=== PATIENT | male | born 1995 | race American Indian/Alaskan Native ===

== ENCOUNTER 2016-06-28 20:19 | Emergency (ER) | payer OTHER ==
[2016-06-29 00:05] LABS: Bacteria,Urine 1+ /HPF (Negative); Bilirubin,Urine NEG (Negative); Blood,Urine NEG (Negative); Ketones,Urine NEG (Negative); Leukocyte Esterase,Urine NEG (Negative); Nitrite,Urine NEG (Negative); Protein,Urine <15 mg/dL mg/dL (Negative); Urobilinogen,Urine < 2.0 mg/dL (<2.0)
[2016-06-29] MEDS ORDERED: XYLOCAINE 1% MPF 5 mL INFILTRATI ONE (01:32)
[2016-06-29] MEDS ORDERED: ZITHROMAX PO ONE (01:32)
[2016-06-29] MEDS ORDERED: ROCEPHIN IM ONE (01:32)
--- NOTE | 2016-06-29 01:47 | Emergency Department Report ---
ED Male HPI - General Chief complaint: Urogenital-Male Stated complaint: PAINFUL URINATION Time Seen by Provider: 06/29/16 01:20 Source: patient Mode of arrival: Ambulatory Limitations: No Limitations - History of Present Illness Initial comments: 21-year-old -[place]ian male with past medical history of legally blind. Home from the . He reports this been having clear discharge from his penis and is painful for him to urinate. Patient reports that he saw his primary care doctor week ago was given Flagyl as a medication for treatment. Patient state is not any better. He seemed does admit to having unprotected sex prior to visiting his primary care provider. He is currently on no medications has no known drug allergies. MD Complaint: penile discharge, dysuria - Related Data Previous Rx's Medication Instructions Recorded Last Taken Type HYDROcodone/APAP 5-325 [[place] 1 each PO Q6HR PRN #10 tablet 08/11/13 Unknown Rx 5/325 mg] Ibuprofen [Motrin 800 MG tab] 800 mg PO Q8H #30 tablet 08/11/13 Unknown Rx Azithromycin [Zithromax] 250 mg PO DAILY #6 tablet 05/15/16 Unknown Rx Ibuprofen [Motrin] 800 mg PO Q8HR PRN #30 tablet 05/15/16 Unknown Rx predniSONE [Deltasone] 10 mg PO QDAY #4 tab 05/15/16 Unknown Rx Allergies Allergy/AdvReac Type Severity Reaction Status Date / Time No Known Allergies Allergy Unverified 08/11/13 08:25 ED Review of Systems ROS: Stated complaint: PAINFUL URINATION Other details as noted in HPI ED Past Medical Hx - Past Medical History Previous Medical History?: No - Social History Smoking Status: Unknown if ever smoked - Medications Home Medications: Home Medications Medication Instructions Recorded Confirmed Last Taken Type HYDROcodone/APAP 5-325 [[place] 1 each PO Q6HR PRN #10 tablet 08/11/13 Unknown Rx 5/325 mg] Ibuprofen [Motrin 800 MG tab] 800 mg PO Q8H #30 tablet 08/11/13 Unknown Rx Azithromycin [Zithromax] 250 mg PO DAILY #6 tablet 05/15/16 Unknown Rx Ibuprofen [Motrin] 800 mg PO Q8HR PRN #30 tablet 05/15/16 Unknown Rx predniSONE [Deltasone] 10 mg PO QDAY #4 tab 05/15/16 Unknown Rx ED Physical Exam - General Limitations: No Limitations General appearance: alert, in no apparent distress - Head Head exam: Present: atraumatic, normocephalic - Eye Eye exam: Present: normal appearance - GI/Abdominal GI/Abdominal exam: Present: soft. Absent: distended - exam: Present: normal inspection, urethral discharge, other (groin lymphadenopathy). Absent: testicular tenderness, scrotal swelling ED Course Vital Signs 06/28/16 21:41 Temperature 98.1 F Pulse Rate 78 Respiratory 18 Rate Blood Pressure 112/37 O2 Sat by Pulse 99 Oximetry ED Medical Decision Making - Medical Decision Making Patient's been evaluated by this provider fast track. Discussed patient that we will treat him for gonorrhea and chlamydia. Total patient will give him a shot of Rocephin antibiotic as well as a Zithromax 1 g. Patient verbalized understanding. Critical care attestation.: If time is entered above; I have spent that time in minutes in the direct care of this critically ill patient, excluding procedure time. ED Disposition Clinical Impression: Possible exposure to STD Disposition: DISCHARGED TO HOME OR SELFCARE Is pt being admited?: No Does the pt Need Aspirin: No Instructions: Safe Sex (ED), Sexually Transmitted Diseases (ED) Additional Instructions: Encourage to follow-up with her primary care provider if this persist. Referrals: SANDOR GUAMAN JR, MD [Primary Care Provider] - 3-5 Days
[2016-06-29 01:53] VITALS: BP 108/69
== END 2016-06-29 02:47 | disposition home or self-care (01) ==
LOC: ED 20:19
DX: R36.9 Urethral discharge, unspecified (principal); R30.0 Dysuria
CPT/HCPCS: 81001; 96372; 99282; J0696

== ENCOUNTER 2016-07-06 09:35 | Emergency (ER) | payer OTHER ==
[2016-07-06 09:45] VITALS: BP 119/67
--- NOTE | 2016-07-06 12:40 | Emergency Department Report ---
HPI - General Chief Complaint: Urogenital-Male Time Seen by Provider: 07/06/16 12:13 - HPI HPI: 21-year-old -Cro[place] male comes in today for a return visit for possible STD exposure. Patient complains also of bilateral eye irritation and drainage. Patient reports is no relief with [id number] allergy meds. Patient was recently seen here on 06/28/2016 by this provider and was treated for gonorrhea Chlamydia and Trichomonas. Patient denies any testicular pain to testicular swelling. No recent exposure to any STDs. Since he has been treated on 06/28/2016. ED Past Medical Hx - Past Medical History Previous Medical History?: Yes Additional medical history: STD exposure - Surgical History Past Surgical History?: No - Social History Smoking Status: Never Smoker Substance Use Type: None - Medications Home Medications: Home Medications Medication Instructions Recorded Confirmed Last Taken Type HYDROcodone/APAP 5-325 [[place] 1 each PO Q6HR PRN #10 tablet 08/11/13 Unknown Rx 5/325 mg] Ibuprofen [Motrin 800 MG tab] 800 mg PO Q8H #30 tablet 08/11/13 Unknown Rx Azithromycin [Zithromax] 250 mg PO DAILY #6 tablet 05/15/16 Unknown Rx Ibuprofen [Motrin] 800 mg PO Q8HR PRN #30 tablet 05/15/16 Unknown Rx predniSONE [Deltasone] 10 mg PO QDAY #4 tab 05/15/16 Unknown Rx Levofloxacin [levofloxacin OPTH] 1 - 2 drop OP Q2HWA #1 bottle 07/06/16 Unknown Rx ED Review of Systems ROS: Stated complaint: POSS STD/PINK EYE Other details as noted in HPI Physical Exam - Physical Exam Vital Signs: Vital Signs 07/06/16 09:41 Temperature 98.7 F Pulse Rate 92 H Respiratory 18 Rate Blood Pressure 119/67 O2 Sat by Pulse 98 Oximetry Physical Exam: GENERAL: Alert and oriented x3, no apparent distress, Normal Gait, atraumatic. HEAD: Head is normocephalic and a-traumatic. EYES: Extra ocular muscles are intact. Pupils are equal, round, and reactive to light and accommodation. Bilateral conjunctival erythematous with mild edematous EARS: symetrical, atraumatic, non tender, ear canal clear and moderate cerumen, tympanic membrance non inflamed. gross auditory nml bilaterally. NOSE: Nose symetrical, Nontender,Nares appeared normal. MOUTH:Mouth is well hydrated and without lesions. Tonsils nonerythematous or swollen, Uvula midline, Tongue not elevated. Mucous membranes are moist. Posterior pharynx clear, no exudate or lesions. Patent airways. UROGENITAL: No scrotal mass, Scrotum non tender to palpation bilaterally, no hernia, no scars or penile discharge. EXTREMITIES/MUSCULOSKELETAL: No cyanosis, clubbing, rash, lesions or edema. Full ROM bilaterally. UE/LE Pulses 2+ bilaterally. LE and UE 5+ strength bilaterally NEUROLOGIC: No focal Deficit, Cranial nerves II through XII are grossly intact. No loss of sensation, No facial droop, Negative rhomberg. PSYCHIATRIC: Mood is congruent with affect, denies suicidal or homicidal ideations. SKIN: Warm and dry, No lesions, No ulceration or induration present ED Course Vital Signs 07/06/16 09:41 Temperature 98.7 F Pulse Rate 92 H Respiratory 18 Rate Blood Pressure 119/67 O2 Sat by Pulse 98 Oximetry ED Medical Decision Making - Medical Decision Making Assessment evaluated by this provider in fast track. Discussed with patient that he was recently treated for gonorrhea Chlamydia and Trichomonas. Discussed with patient that we will refer him to urology. Discussed with patient that we will treat his conjunctivitis with antibiotics. Discussed with patient that we were referred him to a primary care provider for further evaluation. Patient Verbalized Understanding Critical care attestation.: If time is entered above; I have spent that time in minutes in the direct care of this critically ill patient, excluding procedure time. ED Disposition Clinical Impression: Penile discharge Conjunctivitis Qualifiers: Conjunctivitis type: acute Acute conjunctivitis type: unspecified Laterality: bilateral Qualified Code(s): H10.33 - Unspecified acute conjunctivitis, bilateral Disposition: DISCHARGED TO HOME OR SELFCARE Is pt being admited?: No Does the pt Need Aspirin: No Condition: Stable Instructions: Conjunctivitis (ED) Additional Instructions: Take antibiotics as prescribed for URI. Follow up with the urologist and primary care. If symptoms persists or gets worse follow-up with emergency room Prescriptions: Levofloxacin [levofloxacin OPTH] 1 - 2 drop OP Q2HWA #1 bottle Referrals: SANDOR GUAMAN JR, MD [Primary Care Provider] - 3-5 Days MURALI TA MD [Referring] - 3-5 Days NELLY PECK MD [Referring] - 3-5 Days STELLA WALDEN MD [Referring] - 3-5 Days ISHAN VERGARA MD [Referring] - 3-5 Days IGNACIO HERNANDEZ MD [Referring] - 3-5 [facility] [[facility]] - 3-5 Days Forms: Work/School Release Form(ED)
== END 2016-07-06 13:00 | disposition home or self-care (01) ==
LOC: ED 09:35
DX: H10.33 Unspecified acute conjunctivitis, bilateral (principal); R36.9 Urethral discharge, unspecified
CPT/HCPCS: 99282

== ENCOUNTER 2016-08-30 15:19 | Emergency (ER) | payer OTHER ==
--- NOTE | 2016-08-30 18:30 | Emergency Department Report ---
<BRITANY HIRSCH - Last Filed: 08/30/16 19:10> ED ENT HPI - General Chief complaint: Sore Throat Stated complaint: Sore Throat Source: patient Mode of arrival: Ambulatory Limitations: No Limitations - History of Present Illness Initial comments: 21 year old male presents to ED with sore throat and productive cough x3-4 days. patient is stable, neurologically intact, in no acute distress and afebrile. MD complaint: sore throat, ear pain (right), difficulty swallowing Location: R ear, throat Severity: mild Consistency: constant Improves with: none Worsens with: swallowing Associated Symptoms: cough, pain with swallowing, sore throat. denies: fever, tinnitus, hearing loss, discharge from ear - Related Data Previous Rx's Medication Instructions Recorded Last Taken Type HYDROcodone/APAP 5-325 [[place] 1 each PO Q6HR PRN #10 tablet 08/11/13 Unknown Rx 5/325 mg] Ibuprofen [Motrin 800 MG tab] 800 mg PO Q8H #30 tablet 08/11/13 Unknown Rx Azithromycin [Zithromax] 250 mg PO DAILY #6 tablet 05/15/16 Unknown Rx Ibuprofen [Motrin] 800 mg PO Q8HR PRN #30 tablet 05/15/16 Unknown Rx predniSONE [Deltasone] 10 mg PO QDAY #4 tab 05/15/16 Unknown Rx Levofloxacin [levofloxacin OPTH] 1 - 2 drop OP Q2HWA #1 bottle 07/06/16 Unknown Rx Nystas/Diphen/Xyl Visc/Mylanta 30 ml MM Q4H PRN 5 Days 08/30/16 Unknown Rx [Magic Mouthwash] predniSONE [Deltasone] 40 mg PO QDAY 5 Days 08/30/16 Unknown Rx Allergies Allergy/AdvReac Type Severity Reaction Status Date / Time No Known Allergies Allergy Unverified 08/11/13 08:25 ED Dental HPI - General Chief complaint: Sore Throat Stated complaint: Sore Throat Source: patient Mode of arrival: Ambulatory Limitations: No Limitations - Related Data Previous Rx's Medication Instructions Recorded Last Taken Type HYDROcodone/APAP 5-325 [[place] 1 each PO Q6HR PRN #10 tablet 08/11/13 Unknown Rx 5/325 mg] Ibuprofen [Motrin 800 MG tab] 800 mg PO Q8H #30 tablet 05/17/14 Unknown Rx Azithromycin [Zithromax] 250 mg PO DAILY #6 tablet 05/15/16 Unknown Rx Ibuprofen [Motrin] 800 mg PO Q8HR PRN #30 tablet 05/15/16 Unknown Rx predniSONE [Deltasone] 10 mg PO QDAY #4 tab 05/15/16 Unknown Rx Levofloxacin [levofloxacin OPTH] 1 - 2 drop OP Q2HWA #1 bottle 07/06/16 Unknown Rx Nystas/Diphen/Xyl Visc/Mylanta 30 ml MM Q4H PRN 5 Days 08/30/16 Unknown Rx [Magic Mouthwash] predniSONE [Deltasone] 40 mg PO QDAY 5 Days 08/30/16 Unknown Rx Allergies Allergy/AdvReac Type Severity Reaction Status Date / Time No Known Allergies Allergy Unverified 08/11/13 08:25 ED Review of Systems ROS: Stated complaint: Sore Throat Other details as noted in HPI Constitutional: denies: chills, fever Eyes: denies: eye pain, eye discharge, vision change ENT: ear pain, throat pain Respiratory: denies: cough, shortness of breath, wheezing Cardiovascular: denies: chest pain, palpitations Endocrine: no symptoms reported Gastrointestinal: denies: abdominal pain, nausea, diarrhea Genitourinary: denies: urgency, dysuria Musculoskeletal: denies: back pain, joint swelling, arthralgia Skin: denies: rash, lesions Neurological: denies: headache, weakness, paresthesias Psychiatric: denies: anxiety, depression Hematological/Lymphatic: denies: easy bleeding, easy bruising ED Past Medical Hx - Past Medical History Previous Medical History?: Yes Additional medical history: STD exposure - Surgical History Past Surgical History?: No - Social History Smoking Status: Never Smoker Substance Use Type: Non Opiate Pain, Other - Medications Home Medications: Home Medications Medication Instructions Recorded Confirmed Last Taken Type HYDROcodone/APAP 5-325 [[place] 1 each PO Q6HR PRN #10 tablet 08/11/13 Unknown Rx 5/325 mg] Ibuprofen [Motrin 800 MG tab] 800 mg PO Q8H #30 tablet 08/11/13 Unknown Rx Azithromycin [Zithromax] 250 mg PO DAILY #6 tablet 05/15/16 Unknown Rx Ibuprofen [Motrin] 800 mg PO Q8HR PRN #30 tablet 05/15/16 Unknown Rx predniSONE [Deltasone] 10 mg PO QDAY #4 tab 05/15/16 Unknown Rx Levofloxacin [levofloxacin OPTH] 1 - 2 drop OP Q2HWA #1 bottle 07/06/16 Unknown Rx Nystas/Diphen/Xyl Visc/Mylanta 30 ml MM Q4H PRN 5 Days 08/30/16 Unknown Rx [Magic Mouthwash] predniSONE [Deltasone] 40 mg PO QDAY 5 Days 08/30/16 Unknown Rx ED Physical Exam - General Limitations: No Limitations General appearance: alert, in no apparent distress - Head Head exam: Present: atraumatic, normocephalic - Eye Eye exam: Present: normal appearance - ENT ENT exam: Present: normal exam, mucous membranes moist, TM's normal bilaterally - Neck Neck exam: Present: normal inspection, full ROM. Absent: tenderness, lymphadenopathy - Respiratory Respiratory exam: Present: normal lung sounds bilaterally. Absent: respiratory distress - Cardiovascular Cardiovascular Exam: Present: regular rate, normal rhythm. Absent: systolic murmur, diastolic murmur, rubs, gallop - GI/Abdominal GI/Abdominal exam: Present: soft, normal bowel sounds. Absent: tenderness - Rectal Rectal exam: Present: deferred - Extremities Exam Extremities exam: Present: normal inspection, full ROM - Back Exam Back exam: Present: normal inspection, full ROM - Neurological Exam Neurological exam: Present: alert, oriented X3, normal gait - Psychiatric Psychiatric exam: Present: normal affect, normal mood - Skin Skin exam: Present: warm, dry, intact, normal color. Absent: rash ED Course Vital Signs 08/30/16 15:33 Temperature 98.7 F Pulse Rate 88 Respiratory 20 Rate Blood Pressure 113/70 O2 Sat by Pulse 97 Oximetry ED Medical Decision Making - Medical Decision Making 21 year old male presents to ED with sore throat and coughing. patient has CXR and rapid strep pending per discharge. patient care transitioned to johntahon MCCLURE at 705pm Critical care attestation.: If time is entered above; I have spent that time in minutes in the direct care of this critically ill patient, excluding procedure time. ED Disposition Clinical Impression: Bronchitis, acute Qualifiers: Bronchitis organism: unspecified organism Qualified Code(s): J20.9 - Acute bronchitis, unspecified Disposition: DISCHARGED TO HOME OR SELFCARE Is pt being admited?: No Does the pt Need Aspirin: No Condition: Stable Instructions: Acute Bronchitis (ED) Additional Instructions: Take prednisone and cough syrup as prescribed. Follow-up with her primary care doctor in 3-5 days or if symptoms worsen report back to the emergency room as soon as possible. Prescriptions: Nystas/Diphen/Xyl Visc/Mylanta [Magic Mouthwash] 30 ml MM Q4H PRN 5 Days PRN Reason: Sore Throat predniSONE [Deltasone] 40 mg PO QDAY 5 Days Referrals: PRIMARY CAREMD [Primary Care Provider] - 3-5 Days [facility] [Outside] - 3-5 Days [facility] [Outside] - 3-5 Days YOANNA MANTILLA MD [Staff Physician] - 3-5 Days Forms: Work/School Release Form(ED) <JOHNATHON AGOSTO - Last Filed: 08/30/16 20:24> ED ENT HPI - History of Present Illness complaint: ear pain ED Medical Decision Making - Medical Decision Making Patient was transitioned from Cornelius, A PC-C due to pending x-ray results.. As per Cornelius, no antibiotics to d/c with. Only prednisone and magic mouth wash.
[2016-08-30] MEDS ORDERED: TORADOL IM ONE (18:45)
[2016-08-30] MEDS ORDERED: PHENERGAN/CODEINE 6.25-10 MG/5ML PO ONE (18:45)
--- NOTE | 2016-08-30 20:14 | XRay Report ---
FINAL REPORT EXAM: XR CHEST ROUTINE 2V HISTORY: cough and sore throat for 4 days TECHNIQUE: PA and lateral views of the chest PRIORS: None. FINDINGS: Lines, tubes, and devices: N/A Lungs and pleura: Trachea is normal in position. Lungs are clear of infiltrate, pleural effusion, vascular congestion, or pneumothorax. Cardiomediastinal silhouette: Cardiac and mediastinal silhouettes are unremarkable. Other: Bony structures are intact. IMPRESSION: No acute cardiopulmonary process seen.
[2016-08-30 21:01] VITALS: BP 101/58
== END 2016-08-30 21:01 | disposition home or self-care (01) ==
LOC: ED 15:19
DX: J20.9 Acute bronchitis, unspecified (principal)
CPT/HCPCS: 71020; 87116; 87430; 96372; J1885

== ENCOUNTER 2016-11-06 09:23 | Emergency (ER) | payer OTHER ==
--- NOTE | 2016-11-06 10:46 | XRay Report ---
Left knee 2 views: History: Pain left knee. Findings: No bony or articular abnormality. No fracture or dislocation. Suspicion of minimal fluid in the suprapatellar bursa. Impression: Suspicion of minimal fluid in suprapatellar bursa.
--- NOTE | 2016-11-06 10:47 | XRay Report ---
Right shoulder 3 views: History: Pain. Findings: No bony or articular abnormality. No fracture dislocation or soft tissue calcification. Impression: Essentially negative right shoulder.
--- NOTE | 2016-11-06 14:35 | Emergency Department Report ---
ED Neck Pain/Injury HPI - General Chief Complaint: Neck Pain/Injury Stated Complaint: RT SHOULDER/LEFT KNEE PAIN/DEPRESSED Time Seen by Provider: 11/06/16 14:20 Mode of arrival: Ambulatory Limitations: No Limitations - History of Present Illness Initial Comments: 21-year-old male presents with complaint of acute on chronic neck pain knee and shoulder pain. Patient states he suffers from cervical spondylolisthesis and was in the [employer], states that he did a lot of parachute jumps and that he has explains chronic pain in his knee and shoulders as a result. Denies any fevers chills patient is ambulatory without assistance. Denies any paresthesias no reports of paralysis no upper or lower extremity paresthesias. Patient is visibly and lids are without assistance. States he is following up with orthopedics for his chronic neck and shoulder and knee pain. states this particular episode got aggravated this week MD Complaint: other (chronic neck pain) Onset/Timin -: week(s) Place: home Radiation: right shoulder Severity: moderate Severity scale (0 -10): 5 Quality: aching Consistency: intermittent Improves With: none Associated Symptoms: none - Related Data Previous Rx's Medication Instructions Recorded Last Taken Type HYDROcodone/APAP 5-325 [[place] 1 each PO Q6HR PRN #10 tablet 08/11/13 Unknown Rx 5/325 mg] Ibuprofen [Motrin 800 MG tab] 800 mg PO Q8H #30 tablet 08/11/13 Unknown Rx Azithromycin [Zithromax] 250 mg PO DAILY #6 tablet 05/15/16 Unknown Rx Ibuprofen [Motrin] 800 mg PO Q8HR PRN #30 tablet 05/15/16 Unknown Rx predniSONE [Deltasone] 10 mg PO QDAY #4 tab 05/15/16 Unknown Rx Levofloxacin [levofloxacin OPTH] 1 - 2 drop OP Q2HWA #1 bottle 07/06/16 Unknown Rx Nystas/Diphen/Xyl Visc/Mylanta 30 ml MM Q4H PRN 5 Days 08/30/16 Unknown Rx [Magic Mouthwash] predniSONE [Deltasone] 40 mg PO QDAY 5 Days 08/30/16 Unknown Rx Acetaminophen/Codeine [Tylenol 1 tab PO Q6H PRN #14 tab 11/06/16 Unknown Rx /Codeine # 3 tab] Naproxen [Naprosyn TAB] 500 mg PO BID PRN #25 tablet 11/06/16 Unknown Rx Allergies Allergy/AdvReac Type Severity Reaction Status Date / Time No Known Allergies Allergy Unverified 08/11/13 08:25 ED Review of Systems ROS: Stated complaint: RT SHOULDER/LEFT KNEE PAIN/DEPRESSED Other details as noted in HPI Constitutional: denies: chills, fever Eyes: denies: eye pain, eye discharge, vision change ENT: denies: ear pain, throat pain Respiratory: denies: cough, shortness of breath, wheezing Cardiovascular: denies: chest pain, palpitations Endocrine: no symptoms reported Gastrointestinal: denies: abdominal pain, nausea, diarrhea Genitourinary: denies: urgency, dysuria Musculoskeletal: as per HPI, arthralgia. denies: back pain, joint swelling Skin: denies: rash, lesions Neurological: denies: headache, weakness, paresthesias Psychiatric: denies: anxiety, depression Hematological/Lymphatic: denies: easy bleeding, easy bruising ED Past Medical Hx - Past Medical History Previous Medical History?: No Additional medical history: STD exposure - Social History Smoking Status: Never Smoker - Medications Home Medications: Home Medications Medication Instructions Recorded Confirmed Last Taken Type HYDROcodone/APAP 5-325 [[place] 1 each PO Q6HR PRN #10 tablet 08/11/13 Unknown Rx 5/325 mg] Ibuprofen [Motrin 800 MG tab] 800 mg PO Q8H #30 tablet 08/11/13 Unknown Rx Azithromycin [Zithromax] 250 mg PO DAILY #6 tablet 05/15/16 Unknown Rx Ibuprofen [Motrin] 800 mg PO Q8HR PRN #30 tablet 05/15/16 Unknown Rx predniSONE [Deltasone] 10 mg PO QDAY #4 tab 05/15/16 Unknown Rx Levofloxacin [levofloxacin OPTH] 1 - 2 drop OP Q2HWA #1 bottle 07/06/16 Unknown Rx Nystas/Diphen/Xyl Visc/Mylanta 30 ml MM Q4H PRN 5 Days 08/30/16 Unknown Rx [Magic Mouthwash] predniSONE [Deltasone] 40 mg PO QDAY 5 Days 08/30/16 Unknown Rx Acetaminophen/Codeine [Tylenol 1 tab PO Q6H PRN #14 tab 11/06/16 Unknown Rx /Codeine # 3 tab] Naproxen [Naprosyn TAB] 500 mg PO BID PRN #25 tablet 11/06/16 Unknown Rx ED Physical Exam - General Limitations: No Limitations General appearance: alert, in no apparent distress - Head Head exam: Present: atraumatic, normocephalic - Eye Eye exam: Present: normal appearance, PERRL, EOMI - ENT ENT exam: Present: mucous membranes moist - Neck Neck exam: Present: normal inspection, full ROM (neck flexion and extension and lateral rotation and lateral flexion fully intact) - Respiratory Respiratory exam: Present: normal lung sounds bilaterally. Absent: respiratory distress - Cardiovascular Cardiovascular Exam: Present: regular rate, normal rhythm. Absent: systolic murmur, diastolic murmur, rubs, gallop - GI/Abdominal GI/Abdominal exam: Present: soft, normal bowel sounds - Rectal Rectal exam: Present: deferred - Extremities Exam Extremities exam: Present: normal inspection - Back Exam Back exam: Present: normal inspection - Neurological Exam Neurological exam: Present: alert, oriented X3, CN II-XII intact, normal gait - Expanded Neurological Exam Expanded Patient oriented to: Present: person, place, time Cranial nerves: EOM's Intact: Normal Cerebellar function: Finger to Nose: Normal, Heel to Puri: Normal, Romberg: Normal Sensory exam: Upper Extremity Light Touch: Normal, Lower Extremity Light Touch: Normal Motor strength exam: RUE: 5, LUE: 5, RLE: 5, LLE: 5 DTR: bicep (R): 3+, bicep (L): 3+, tricep (R): 3+, tricep (L): 3+, knee (R): 3+ , knee (L): 3+ Best Eye Response (Rosa): (4) open spontaneously Best Motor Response (Rosalia): (6) obeys commands Best Verbal Response (Rosa): (5) oriented Rosa Total: 15 - Psychiatric Psychiatric exam: Present: normal affect, normal mood - Skin Skin exam: Present: warm, dry, intact, normal color. Absent: rash ED Course Vital Signs 11/06/16 11/06/16 10:01 14:53 Temperature 98 F Pulse Rate 85 80 Respiratory 20 18 Rate Blood Pressure 112/66 Blood Pressure 112/66 144/86 [Left] O2 Sat by Pulse 100 100 Oximetry ED Medical Decision Making - Medical Decision Making A/P: Acute on chronic neck shoulder and knee pain secondary to cervical spondylolisthesis and repetitive exercise 1-naproxen and short course Tylenol 3 when necessary 2-referral to orthopedics and spine surgery 3-x-rays unremarkable 4-patient has 5 out of 5 strength both upper extremities is ambulatory and denies any paresthesias no recent trauma. Forearm and tricep reflexes intact bilaterally. No clinical signs of cord compression. Critical care attestation.: If time is entered above; I have spent that time in minutes in the direct care of this critically ill patient, excluding procedure time. ED Disposition Clinical Impression: Neck pain, chronic Knee pain, chronic Qualifiers: Laterality: bilateral Qualified Code(s): M25.561 - Pain in right knee Disposition: TO HOME OR SELFCARE Is pt being admited?: No Does the pt Need Aspirin: No Condition: Stable Instructions: Cervical Radiculopathy (ED) Prescriptions: Acetaminophen/Codeine [Tylenol /Codeine # 3 tab] 1 tab PO Q6H PRN #14 tab PRN Reason: Pain Naproxen [Naprosyn TAB] 500 mg PO BID PRN #25 tablet PRN Reason: Pain Referrals: CONCHIS VALADEZ MD [Staff Physician] - 3-5 Days PRASHANTH MAYS MD [Staff Physician] - 3-5 Days Forms: Work/School Release Form(ED) Time of Disposition: 14:36
[2016-11-06] MEDS ORDERED: NORCO 5/325 PO ONE (14:38)
[2016-11-06] MEDS ORDERED: ZOFRAN ODT PO ONE (14:39)
[2016-11-06 14:54] VITALS: BP 144/86
== END 2016-11-06 14:53 | disposition home or self-care (01) ==
LOC: ED 09:23
DX: G89.29 Other chronic pain (principal); M54.2 Cervicalgia; M25.562 Pain in left knee
CPT/HCPCS: 99283

== ENCOUNTER 2016-12-12 08:43 | Emergency (ER) | payer OTHER ==
[2016-12-12 08:49] VITALS: BP 113/71
[2016-12-12] MEDS ORDERED: DECADRON IM STA (10:12)
--- NOTE | 2016-12-12 10:12 | Emergency Department Report ---
ED Rash HPI - HPI Chief Complaint: Skin Rash Stated Complaint: RASH Time Seen by Provider: 12/12/16 10:05 Duration: 2 weeks Location: Other (Face) Suspected Cause: Unknown Rash Symptoms: Yes Itching (rash to face), No Facial Swelling, No Tongue/Oral Swelling, No Breathing Difficulties, No Choking Sensation, No Wheezing/Dyspnea, No Peeling, No Blistering, No Fever, No Lightheaded, No Malaise, No Myalgias Other History: Patient here reports that he has rash to his face for the last 2 weeks. He says is itchy but denies any pain. Denies any respiratory difficulties. Patient does not know what he is allergic to. He said he did not use anything [id number]. Denies any nausea or vomiting. Denies any cough or wheezing. Denies any swelling to tongue or difficulty swallowing. Denies any fever or chills. ED Review of Systems ROS: Stated complaint: RASH Other details as noted in HPI Comment: All other systems reviewed and negative Constitutional: no symptoms reported Eyes: denies: eye pain, eye discharge ENT: denies: throat pain, congestion Respiratory: no symptoms reported Cardiovascular: denies: chest pain, palpitations, edema, syncope Gastrointestinal: denies: nausea, vomiting Musculoskeletal: denies: arthralgia Skin: rash, pruritus Neurological: denies: headache, weakness, numbness, paresthesias, confusion, abnormal gait, vertigo ED Past Medical Hx - Past Medical History Previous Medical History?: No Additional medical history: STD exposure - Surgical History Past Surgical History?: No - Family History Family history: no significant - Social History Smoking Status: Never Smoker Substance Use Type: None - Medications Home Medications: Home Medications Medication Instructions Recorded Confirmed Last Taken Type Cetirizine HCl [ZyrTEC] 10 mg PO QDAY #7 capsule 12/12/16 Unknown Rx methylPREDNISolone [Medrol] 4 mg PO QAM #1 tab.ds.pk 12/12/16 Unknown Rx Rash Exam - Exam General: Vital signs noted. No distress. Alert and acting appropriately. This is a 41-year-old male well-nourished well-developed in no acute distress. HEENT: No Periorbital Edema, No Conjuctival Injection, No Chemosis, No Perioral Edema, No Tongue Edema, No Uvular Edema, No Compromised Airway, No Drooling Lungs: Yes Good Air Exchange, No Wheezes, No Ronchi, No Stridor, No Cough, No Labored Respirations, No Retractions, No Use of Accessory Muscles, No Other Abnormal Lung Sounds Heart: Yes Regular, No Murmur Skin: Yes Urticarial Rash (scattered sparsely to face on both sides), Yes Erythema (facial rash), No Maculopapular Rash, No Morbilliform rash, No Bulla(e) , No Excoriations, No Weeping, No Tenderness, No Edema, No Encrustations, No Other Other: Positive: Abdomen Normal, Neurologic Normal, Musculoskeletal Normal ED Course Vital Signs 12/12/16 08:47 Temperature 98.7 F Pulse Rate 71 Respiratory 16 Rate Blood Pressure 113/71 O2 Sat by Pulse 100 Oximetry - Reevaluation(s) Reevaluation #1: 12/12/16 11:23 Patient given Decadron 10 mg IM and recommended to see a political director as he has access to political director. Status post Decadron patient reassessed and facial rash is clear and ED Medical Decision Making - Medical Decision Making ED course: PT here complaining of rash that is itchy to his facial areas on both sides for 2 weeks. Denies anything new in his in his environment. Physical findings for localized rash to facial area that is urticarial in nature. Patient was given Decadron 10 mg IM and upon reevaluation rash is clearing. Patient's instructed in diagnosis and treatment plan and he voiced understanding. I discussed with him that he will need to see the political director to have allergy testing done. Patient is stable with uneventful ED course and discharged home with Medrol Dosepak and Zyrtec. Critical care attestation.: If time is entered above; I have spent that time in minutes in the direct care of this critically ill patient, excluding procedure time. ED Disposition Clinical Impression: Urticaria, Pruritus Disposition: - TO HOME OR SELFCARE Is pt being admited?: No Does the pt Need Aspirin: No Condition: Stable Instructions: Acute Rash (ED), Itchy Skin (ED) Additional Instructions: Please take Medrol Dosepak If you're allergic reaction symptoms come back or progressive please return to the emergency room JHONATHAN If you develop swollen tongue, hoarse voice, itch into throat, wheezing, stridor and increase in rash please return to the emergency room otherwise follow-up with your primary care physician in 24 hours if you do not have a piece follow-up with the primary care and political director in 2-3 days. Do not put steroid on your face and avoid sunlight as this will help to hasten healing Prescriptions: Cetirizine HCl [ZyrTEC] 10 mg PO QDAY #7 capsule methylPREDNISolone [Medrol] 4 mg PO QAM #1 tab.ds.pk Referrals: PRIMARY CARE, [Primary Care Provider] - 3-5 Days JEREMY REDD MD [Staff Physician] - 2-3 Days Forms: Work/School Release Form(ED)
== END 2016-12-12 11:36 | disposition home or self-care (01) ==
LOC: ED 08:43
DX: L50.9 Urticaria, unspecified (principal); L29.9 Pruritus, unspecified
CPT/HCPCS: 96372; 99282; J1100

== ENCOUNTER 2017-10-05 11:27 | Emergency (ER) | payer SELFPAY ==
[2017-10-05 11:39] VITALS: BP 122/75
== END 2017-10-05 11:39 | disposition left against medical advice (07) ==
LOC: ED 11:27
DX: B00.9 Herpesviral infection, unspecified (principal); Z53.21 Procedure and treatment not carried out due to patient leaving prior to being seen by health care provider

== ENCOUNTER 2018-06-29 14:25 | Emergency (ER) | payer OTHER ==
[2018-06-29 15:09] VITALS: BP 121/73
[2018-06-29] MEDS ORDERED: BOOSTRIX IM ONE (15:09)
--- NOTE | 2018-06-29 15:09 | Emergency Department Report ---
Blank Doc - Documentation Documentation: This is a 23-year-old male that presents with right arm lac. Patient stated h appened 4 days ago. Denies being UTD with tetanus. Exam: Abrasion that is well healing. This initial assessment/diagnostic orders/clinical plan/treatment(s) is/are subject to change based on patient's health status, clinical progression and re- assessment by fellow clinical providers in the ED. Further treatment and workup at subsequent clinical providers discretion. Patient/guardians urged not to elope from the ED as their condition may be serious if not clinically assessed and managed. Initial orders include: 1- Patient sent to [facility] for further evaluation and treatment 2- Tetanus
--- NOTE | 2018-06-29 17:31 | Emergency Department Report ---
- General Chief Complaint: Laceration/Recheck/Suture Stated Complaint: ARM LACERATION Time Seen by Provider: 06/29/18 15:07 Source: patient Mode of arrival: Ambulatory Limitations: No Limitations - History of Present Illness Initial Comments: This is a 23-year-old male that presents with right arm lac. Patient stated happened 4 days ago. Denies being UTD with tetanus. Exam: Abrasion that is well healing. Onset/Timin -: days(s) Extremity Location: Right: Wrist (abrasion) Place: work Patient Tetanus UTD: No Context: accidental Associated Symptoms: other (itching) - Related Data Previous Rx's Medication Instructions Recorded Last Taken Type Cetirizine HCl [ZyrTEC] 10 mg PO QDAY #7 capsule 12/12/16 Unknown Rx methylPREDNISolone [Medrol] 4 mg PO QAM #1 tab.ds.pk 12/12/16 Unknown Rx Mupirocin [Bactroban 2% OINT] 1 applic TP TID 14 Days #1 tube 06/29/18 Unknown Rx diphenhydrAMINE [Benadryl CAP] 25 mg PO Q6HR PRN #30 capsule 06/29/18 Unknown Rx Allergies Allergy/AdvReac Type Severity Reaction Status Date / Time No Known Allergies Allergy Verified 06/29/18 14:29 ED Review of Systems ROS: Stated complaint: ARM LACERATION Other details as noted in HPI Constitutional: denies: chills, fever Eyes: denies: eye pain, eye discharge, vision change ENT: denies: ear pain, throat pain Respiratory: denies: cough, shortness of breath, wheezing Cardiovascular: denies: chest pain, palpitations Endocrine: no symptoms reported Gastrointestinal: denies: abdominal pain, nausea, diarrhea Genitourinary: denies: urgency, dysuria Musculoskeletal: denies: back pain, joint swelling, arthralgia Skin: other (right forearm abrasion). denies: rash, lesions Neurological: denies: headache, weakness, paresthesias Psychiatric: denies: anxiety, depression Hematological/Lymphatic: denies: easy bleeding, easy bruising ED Past Medical Hx - Past Medical History Additional medical history: STD exposure - Social History Smoking Status: Never Smoker Substance Use Type: None - Medications Home Medications: Home Medications Medication Instructions Recorded Confirmed Last Taken Type Cetirizine HCl [ZyrTEC] 10 mg PO QDAY #7 capsule 12/12/16 Unknown Rx methylPREDNISolone [Medrol] 4 mg PO QAM #1 tab.ds.pk 12/12/16 Unknown Rx Mupirocin [Bactroban 2% OINT] 1 applic TP TID 14 Days #1 tube 06/29/18 Unknown Rx diphenhydrAMINE [Benadryl CAP] 25 mg PO Q6HR PRN #30 capsule 06/29/18 Unknown Rx ED Physical Exam - General Limitations: No Limitations General appearance: alert, in no apparent distress - Head Head exam: Present: atraumatic, normocephalic - Eye Eye exam: Present: normal appearance, PERRL, EOMI Pupils: Present: normal accommodation - ENT ENT exam: Present: normal exam, normal orophraynx, mucous membranes moist, TM's normal bilaterally, normal external ear exam - Expanded ENT Exam Expanded Throat exam: Positive: normal inspection, other (uvula midline no swelling no lesions no exudate no stidor ) - Neck Neck exam: Present: normal inspection - Respiratory Respiratory exam: Present: normal lung sounds bilaterally. Absent: respiratory distress, wheezes, rales, rhonchi, stridor, chest wall tenderness - Cardiovascular Cardiovascular Exam: Present: regular rate, normal rhythm, normal heart sounds. Absent: systolic murmur, diastolic murmur, rubs, gallop - GI/Abdominal GI/Abdominal exam: Present: soft, normal bowel sounds. Absent: tenderness, rebound, bruit, hernia - Rectal Rectal exam: Present: deferred - Extremities Exam Extremities exam: Present: normal inspection - Back Exam Back exam: Present: normal inspection, full ROM - Neurological Exam Neurological exam: Present: alert, oriented X3, CN II-XII intact, normal gait - Psychiatric Psychiatric exam: Present: normal affect, normal mood - Skin Skin exam: Present: warm, dry, intact, normal color, other (small abrasion less than 1 cm no erythema no fever no drainage ). Absent: rash ED Course Vital Signs 06/29/18 15:07 Temperature 98.1 F Pulse Rate 93 H Respiratory 18 Rate Blood Pressure 121/73 O2 Sat by Pulse 100 Oximetry ED Medical Decision Making - Medical Decision Making abrasion , plan benadryl, neosporin, follow up with pcp in 2-3 days return to ed if symptoms worsen, pt verbalized agreement and understanding of same. Critical care attestation.: If time is entered above; I have spent that time in minutes in the direct care of this critically ill patient, excluding procedure time. ED Disposition Clinical Impression: Abrasion of forearm, right Qualifiers: Encounter type: initial encounter Qualified Code(s): S50.811A - Abrasion of right forearm, initial encounter Disposition: - TO HOME OR SELFCARE Is pt being admited?: No Does the pt Need Aspirin: No Condition: Stable Instructions: Abrasion (ED) Prescriptions: Mupirocin [Bactroban 2% OINT] 1 applic TP TID 14 Days #1 tube diphenhydrAMINE [Benadryl CAP] 25 mg PO Q6HR PRN #30 capsule PRN Reason: Itching Referrals: SANDOR GUAMAN JR, MD [Primary Care Provider] - 3-5 Days Forms: Work/School Release Form(ED) Time of Disposition: 17:34
== END 2018-06-29 17:43 | disposition home or self-care (01) ==
LOC: ED 14:25
DX: S50.811A Abrasion of right forearm, initial encounter (principal); X58.XXXA Exposure to other specified factors, initial encounter; Y93.89 Activity, other specified; Y92.89 Other specified places as the place of occurrence of the external cause; Y99.8 Other external cause status
CPT/HCPCS: 90471; 90715; 99282